=== PATIENT | female | born 1970 | race Caucasian/White ===

== ENCOUNTER 2025-02-18 00:40 | Emergency (ER) | payer OTHER, SELFPAY ==
[2025-02-18 00:44] VITALS: BP 159/99
[2025-02-18 01:00] VITALS: BMI 31.4
--- NOTE | 2025-02-18 02:16 | ED.GENMED ---
History of Present Illness
General
Chief Complaint: Back Pain
Source: patient
Exam Limitations: none
Time Seen by Provider: 02/18/25 01:59
Nursing documentation reviewed up to this point in time: agreed with
History of Present Illness
History of Present Illness:
Patient with history of intermittent back pain, presents ED secondary to worsening lower back pain, radiating down the back of her left leg over the past 1 month. Patient does states that she has been bending down frequently, as she has been
gardening in her backyard. In addition, patient works as a nurse, requiring movement with patient care. Denies loss of sensation or weakness. Denies direct trauma. Denies fever or chills. Denies urinary or bowel incontinence. Patient was
evaluated urgent care center couple days ago where an outpatient x-ray revealed 'narrowing between lower spine'. Patient was recommended to obtain MRI as an outpatient and was started on tapered dose of prednisone along with the muscle relaxant
medication.
Review of Systems
Review of Systems
Allergies reviewed?: Yes
Constitutional: Reports no symptoms; Denies fever
ABD/GI: Reports no symptoms; Denies abdominal pain or vomiting
: Reports no symptoms; Denies incontinence
Musculoskeletal: Reports back pain; Denies neck pain
Skin: Reports no symptoms
Neurological: Reports no symptoms; Denies weakness
Phy Exam
Physical Exam
Physical Exam:
Physical Exam
General: no apparent distress, not acutely ill. afebrile
Head: nc/at. eomi
Neck: supple. no meningeal signs.
Abdomen: normal bowel sounds. not tender. Back: no midline tenderness. left leg raise positive at approx 45 degrees.
Neuro: alert and oriented x 3. no focal neurological deficits
Skin: no rash
Psychiatric: well kept. interactive and cooperative
Extremities: no edema. no calf tenderness.
Course
Orders/Labs/Results
Orders:
Orders
02/18/25 02:25
Ketorolac [Toradol] 30 mg .ROUTE .STK-MED ONE
02/18/25 02:27
Ketorolac [Toradol] 30 mg IM NOW STA
02/18/25 02:50
Crutches-Treatment ONCE
Vital Signs
Initial and Last Documented VS:
Initial Vital Signs
Temp Pulse Resp BP Pulse Ox
98.2 F 85 16 159/99 98
02/18/25 00:44 02/18/25 00:44 02/18/25 00:44 02/18/25 00:44 02/18/25 00:44
Last Documented Vital Signs
Temp Pulse Resp BP Pulse Ox
98.2 F 82 15 167/104 100
02/18/25 00:44 02/18/25 02:35 02/18/25 02:35 02/18/25 02:35 02/18/25 02:35
MDM/Problems Addressed
MDM/Problems Addressed:
History exam consistent with lower back pain, likely secondary to arthritis versus nerve impingement versus sciatica. Fortunately, patient is afebrile, neurologically intact, and without any exam findings concerning for cauda equina syndrome. As
such, patient will be discharged home, without any further imaging studies. Patient will be advised to continue taper dose prednisone but will add tramadol to be used as needed, along with recommendation to apply warm compress as well as
[id number] lidocaine patch. Patient also advised to contact her primary care physician and/or orthopedic surgeon for reevaluation, including potentially obtaining MRI as outpatient.
Prior to discharge, patiennt requesting crutches for comfort, which I believe is reasonable, although pt is noted to amubulate indpendently with steady gait
*Pulse Oximetry
Patient hypoxic: no (98%)
*Critical Care Note
Total Time (30-74mins, 75-104mins- exclusive of procedures): Not Applicable
ED Attending Note
-
Portions of this chart may have been created with voice recognition software.� Occasional wrong word or��sound alike� substitutions may have occurred due to the inherent limitations of voice recognition software.
Discharge Plan
Departure
Patient Disposition: Home (Routine Discharge)
Date of Disposition: 02/18/25
Time of Disposition: 02:16
Patient with high blood pressure during this ER visit?: Yes
Condition: Good
Discharge Problem:
Back pain
Instructions: Low Back Pain (DC)
Prescriptions:
New
tramadol 50 mg tablet
50 mg PO Q8H PRN (Reason: Pain) Qty: 15 0RF
No Action
dextroamphetamine-amphetamine [Adderall] 30 mg Tablet
30 mg PO BID
citalopram [Celexa] 20 mg Tablet
20 mg PO DAILY
Referrals:
UNKNOWN - PT DOES,NOT KNOW [Family Provider]
Celio Hirsch MD [Active, Orthopedics]
Activity Restrictions/Additional Instructions:
As discussed, please follow-up with your primary care physician and/or referred orthopedic surgeon for reevaluation, including potential MRI of lumbar spine as an outpatient. Your prescription has been sent electronically to [facility] pharmacy in
[place]
Interventions
Interventions:
*Risk Screen - Suicide Last Done: 02/18/25 00:44
*General Assessment Last Done: 02/18/25 01:08
*Neglect/Abuse Screening Last Done: 02/18/25 00:44
*ED- Fall Risk Assessment Last Done: 02/18/25 00:44
*ED COVID-19 Vaccine History Last Done: 02/18/25 00:44
*Nursing Disposition Last Done: 02/18/25 02:50
ED-Musculoskeletal Assessment Last Done: 02/18/25 00:55
Discharge Date and Time
Discharge Date/Time: 02/18/25 02:50
Print Language: [id number]
[2025-02-18] MEDS: TORADOL 30 MG IM (02:33)
[2025-02-18 02:35] VITALS: BP 167/104
== END 2025-02-18 02:50 | disposition home or self-care (01) ==
LOC: EMR 00:40
PROVIDERS: EMERGENCY PHYSICIAN Emergency Medicine
DX: M54.50 Low back pain, unspecified (principal); M79.605 Pain in left leg; R03.0 Elevated blood-pressure reading, without diagnosis of hypertension; F41.9 Anxiety disorder, unspecified; F32.A Depression, unspecified; F90.9 Attention-deficit hyperactivity disorder, unspecified type; M48.00 Spinal stenosis, site unspecified
CPT/HCPCS: 99284; 96372